=== PATIENT | female | born 1980 | race African-American/Black ===

== ENCOUNTER 2025-03-27 15:40 | Emergency (ER) | payer BC ==
[~2025-03-27] VITALS: Ht 162.6 cm; Wt 98.0 kg
[2025-03-27 15:51] VITALS: O2SAT 97
[2025-03-27 16:27] LABS: BASOPHILS % 0.8 % (0.0-2.0); DIFFERENTIAL COMMENT 0; EOSINOPHILS % 1.3 % (0.0-5.0); HEMATOCRIT. 43.3 % (36.0-48.0); HEMOGLOBIN. 14.1 g/dL (12.0-16.0); MEAN CORPUSCULAR HEMOGLOBIN 27.7 pg (28.0-32.0); MEAN CORPUSCULAR HGB CONC 32.6 g/dL (31.0-37.0); MEAN CORPUSCULAR VOLUME 84.9 fL (81.0-99.0); MEAN PLATELET VOLUME 9.4 fl (7.4-10.4); MONOCYTES % 7.3 % (2.0-8.0); NEUTROPHILS % 56.6 % (40.0-76.0); PLATELET 252 x1000/uL (130-400); RED BLOOD CELL COUNT 5.09 mill/uL (4.2-5.4); RED CELL DISTRIBUTION WIDTH 15.1 % (11.6-14.6); WHITE BLOOD COUNT 7.3 x1000/uL (4.5-11.0)
[2025-03-27 16:29] LABS: CHLORIDE 103 mEq/L (98-107); POTASSIUM 3.9 mEq/L (3.5-5.1); SODIUM 139 mEq/L (136-145)
[2025-03-27 16:30] LABS: CARBON DIOXIDE 26 mEq/L (21-32)
[2025-03-27 16:31] LABS: CALCIUM 9.3 mg/dL (8.7-10.4)
[2025-03-27 16:35] LABS: CREATININE 0.9 mg/dL (0.6-1.0); GLUCOSE 97 mg/dL (70-105)
[2025-03-27 16:36] LABS: HCG SCREEN NEGATIVE; UREA NITROGEN BLOOD 9 mg/dL (9-23)
[2025-03-27 16:38] LABS: TROPONIN I HIGH SENSITIVITY < 4 ng/L (3.0-34)
[2025-03-27 17:30] LABS: CLARITY URINE CLEAR (CLEAR); COLOR URINE YELLOW (YELLOW); GLUCOSE URINE NEGATIVE (NEGATIVE); KETONES URINE NEGATIVE (NEGATIVE); LEUKOCYTE ESTERASE URINE NEGATIVE (NEGATIVE); NITRITE URINE NEGATIVE (NEGATIVE); OCCULT BLOOD URINE NEGATIVE (NEGATIVE); PH URINE 5.5 (4.5-8.0); PROTEIN URINE NEGATIVE (NEGATIVE); SPECIFIC GRAVITY URINE 1.021 (1.005-1.030); UROBILINOGEN URINE 0.2 E.U./dL (0.2-1.0)
[2025-03-27 18:52] VITALS: TEMP 36.7
[2025-03-27 19:42] VITALS: BP 151/91; PULSE 77; RESP 18; O2SAT 99
== END 2025-03-27 19:42 | disposition home or self-care (01) ==
LOC: ER 15:40
DX: R42 Dizziness and giddiness (principal); I10 Essential (primary) hypertension; Z90.49 Acquired absence of other specified parts of digestive tract; Z91.81 History of falling; Z98.891 History of uterine scar from previous surgery
CPT/HCPCS: 36415; 71045; 80048; 81003; 84484; 84703; 85025; 93005; 99285